=== PATIENT | female | born 1985 | race American Indian/Alaskan Native ===

== ENCOUNTER 2017-11-19 09:18 | Outpatient (CLI) | payer BC ==
--- NOTE | 2017-11-19 10:10 | XRay Report ---
SUPINE KUB: History: Bloating, constipation. Sitz marker study. There is moderate to large stool throughout the length of the colon. No evidence for bowel obstruction, space-occupying mass or pathologic calcifications. Multiple sitz markers are identified. 4 markers are identified near the hepatic flexure. 11 markers are identified in the distal transverse colon. 4 markers are identified in the descending colon. 5 markers are identified in the superior rectum. IMPRESSION: Fecal retention. Sitz markers as described.
== END 2017-11-19 09:19 | disposition home or self-care (01) ==
LOC: XRAY 09:18
PROVIDERS: ATTEND Internal Medicine Gastroenterology
DX: K21.9 Gastro-esophageal reflux disease without esophagitis (principal); R14.0 Abdominal distension (gaseous); K59.09 Other constipation
CPT/HCPCS: 74018